=== PATIENT | female | born 1975 | race Caucasian/White ===

== ENCOUNTER 2017-10-27 10:48 | Emergency (ER) | payer OTHER ==
[2017-10-27 10:55] VITALS: BMI 27.4
--- NOTE | 2017-10-27 11:05 | PDOC ---
History of Present Illness - General Chief Complaint: Vaginal Bleeding Stated Complaint: VAGINAL BLEEDING Time Seen by Provider: 10/27/17 10:59 History Source: Patient - History of Present Illness Initial Comments: 10/27/17 11:39 41 y.o. female with no PMH who presents to the ED today c/o intermittent vaginal bleeding since 10/13. Patient states her LMP was 09/30/17 and then after an intense gym workout she noted some blood in her urine. Patient states she only noticed the one episode until a few days later when she had some spotting in her underwear. Patient has since intermittently noted bright red blood in her urine. Patient notes some associated lower abdominal cramping but no dysuria, no fevers/chills, no constipation/diarrhea. Patient further denies shortness of breath, lightheadedness, palpitations. Patient notes her last BM was this morning and was normal. Patient denies any recent or remote h/o STI's and notes she is in a sexually monagamous relationship with her . Patient denies chest pain, nausea/vomiting, recent travel, sick contacts. NKDA Surgical: C/S (1999) Social: (-) nicotine, (-) alcohol, (-) recreational drugs Past History - Past Medical History Allergies/Adverse Reactions: Allergies Allergy/AdvReac Type Severity Reaction Status Date / Time No Known Allergies Allergy Verified 10/27/17 10:55 Home Medications: Ambulatory Orders NK [No Known Home Medication] 10/27/17 COPD: No Other medical history: IRREGULAR MENSES - Suicide/Smoking/Psychosocial Hx Smoking History: Never smoked Hx Alcohol Use: Yes Drug/Substance Use Hx: No Review of Systems - Review of Systems Constitutional: No: Chills, Fever HEENTM: No: Eye Pain, Double Vision, Throat Pain Respiratory: No: Cough, Shortness of Breath, Stridor, Wheezing Cardiac (ROS): No: Chest Pain, Edema, Lightheadedness, Palpitations, Syncope ABD/GI: No: Constipated, Diarrhea, Nausea, Rectal Bleeding, Vomiting : Yes: Hematuria. No: Burning, Dysuria Neurological: No: Headache, Numbness, Paresthesia, Tingling *Physical Exam - Vital Signs Last Vital Signs Temp Pulse Resp BP Pulse Ox 97.7 F 57 L 18 116/69 98 10/27/17 10:51 10/27/17 10:51 10/27/17 10:51 10/27/17 10:51 10/27/17 10:51 - Physical Exam General Appearance: Yes: Nourished, Appropriately Dressed HEENT: positive: EOMI. negative: Pale Conjunctivae, Scleral Icterus (R), Scleral Icterus (L) Neck: positive: Trachea midline, Supple Respiratory/Chest: positive: Lungs Clear Cardiovascular: positive: S1, S2. negative: Edema, JVD, Murmur Female Pelvic Exam: positive: normal external exam, cervical os closed, vaginal bleeding. negative: CMT, discharge, lesions, adnexal tenderness Gastrointestinal/Abdominal: positive: Normal Bowel Sounds, Soft. negative: Distended, Guarding, Tenderness, Hernia, Mass Musculoskeletal: negative: CVA Tenderness (R), CVA Tenderness (L) Extremity: positive: Normal Capillary Refill, Normal Inspection Integumentary: positive: Normal Color, Dry, Warm Neurologic: positive: Fully Oriented, Alert ED Treatment Course - LABORATORY CBC & Chemistry Diagram: 10/27/17 11:30 Medical Decision Making - Medical Decision Making 10/28/17 07:16 41 y.o. female with no PMH presents w/intermittent hematuria and vaginal bleed. Urine negative. CBC shows no anemia. UA shows 1+ blood. Patient is hemodynamically stable, with no CMT tenderness, normal adenxa on pelvic exam. Will discharge home with return precautions and strict instruction to see cured meat packing supervisor on Sunday 10/29. *DC/Admit/Observation/Transfer Diagnosis at time of Disposition: Vaginal bleeding - Discharge Dispostion Disposition: HOME Condition at time of disposition: Good Admit: No - Referrals Referrals: Scarlett Huber MD [Staff Physician] - - Patient Instructions Printed Discharge Instructions: DI for Vaginal Bleeding Additional Instructions: Please make a follow-up appointment with your sulfuric acid plant operator for Sunday. If you cannot see your sulfuric acid plant operator, a referral has been provided for a local cured meat packing supervisor. Please return to the Emergency Department for any new/worsening/concerning symptoms. - Post Discharge Activity
[2017-10-27 11:51] LABS: BASO % 0.9 % (0-2.0); EOS % 4.7 % (0-4.5); HEMATOCRIT 40.4 % (32.4-45.2); HEMOGLOBIN 13.8 GM/dL (10.7-15.3); LYMPH % 25.7 % (8-40); MCH 31.4 pg (25.7-33.7); MCHC 34.1 g/dl (32.0-36.0); MEAN CELL VOLUME 92.2 fl (80-96); MEAN PLT VOLUME 8.6 fl (7.5-11.1); NEUT % 61.7 % (42.8-82.8); PLATELET COUNT 220 K/MM3 (134-434); RBC 4.38 M/mm3 (3.60-5.2); RDW 12.9 % (11.6-15.6); WHITE BLOOD COUNT 5.6 K/mm3 (4.0-10.0)
[2017-10-27 12:22] LABS: HCG,QUALITATIVE URINE NEGATIVE
[2017-10-27 12:26] LABS: URINE APPEARANCE CLEAR; URINE BILIRUBIN NEGATIVE (NEGATIVE); URINE BLOOD 1+ (NEGATIVE); URINE COLOR STRAW; URINE GLUCOSE (UA) NEGATIVE (NEGATIVE); URINE KETONE NEGATIVE (NEGATIVE); URINE LEUK ESTERASE NEGATIVE (NEGATIVE); URINE NITRITE NEGATIVE (NEGATIVE); URINE PROTEIN NEGATIVE (NEGATIVE); URINE UROBILINOGEN NEGATIVE mg/dL (0.2-1.0)
[2017-10-27 12:33] LABS: EPI CELLS RARE /HPF (FEW)
[2017-10-27 13:16] VITALS: BP 123/77; PULSE 62; TEMP 98.2
== END 2017-10-27 13:16 | disposition home or self-care (01) ==
LOC: JER 10:48
DX: N93.9 Abnormal uterine and vaginal bleeding, unspecified (principal)
CPT/HCPCS: 36415; 81003; 81015; 84703; 85025; 99283-25

== ENCOUNTER 2022-04-16 22:44 | Emergency (ER) | payer OTHER ==
[2022-04-16 23:05] VITALS: BP 128/80; PULSE 62; RESP 20; TEMP 97.9; BMI 31.8
[2022-04-17] MEDS ORDERED: MAG HYDROX/AL HYDROX/SIMETH 30 ML UNIT-DOSE CUP PO ONE (00:19)
[2022-04-17] MEDS ORDERED: FAMOTIDINE 20 MG/50 ML IVPB 20 MG/50 ML MG IVPB ONE ×2 (00:19→00:29)
[2022-04-17] MEDS ORDERED: LACTATED RINGERS SOLUTION 1000 ML INFUS.BAG IV ONE (00:19)
[2022-04-17] MEDS ORDERED: SODIUM CHLORIDE 0.9% 500 ML INFUS.BAG IV ONE (00:19)
[2022-04-17] MEDS ORDERED: MAG HYDROX/AL HYDROX/SIMETH 30 ML UNIT-DOSE CUP ONE (00:29)
[2022-04-17 00:45] LABS: PH,URINE 7.5 (5.0-8.0); URINE APPEARANCE CLEAR; URINE BILIRUBIN NEGATIVE (NEGATIVE); URINE COLOR YELLOW; URINE GLUCOSE (UA) NEGATIVE (NEGATIVE); URINE KETONE 2+ (NEGATIVE); URINE LEUK ESTERASE NEGATIVE (NEGATIVE); URINE NITRITE NEGATIVE (NEGATIVE); URINE PROTEIN NEGATIVE (NEGATIVE); URINE UROBILINOGEN 0.2 mg/dL (0.2-1.0)
[2022-04-17 00:46] LABS: HCG,QUALITATIVE URINE NEGATIVE
[2022-04-17 00:50] LABS: BASO % 0.5 % (0-2.0); HEMOGLOBIN 13.1 GM/dL (10.7-15.3); LYMPH % 7.1 % (8-40); MCHC 33.5 g/dl (32.0-36.0); MEAN CELL VOLUME 89.3 fl (80-96); MEAN PLT VOLUME 7.9 fl (7.5-11.1); NEUT % 83.4 % (42.8-82.8); PLATELET COUNT 273 10^3/uL (134-434); RBC 4.37 M/mm3 (3.60-5.2); RDW 12.5 % (11.6-15.6); WHITE BLOOD COUNT 15.6 K/mm3 (4.0-10.0)
[2022-04-17 01:10] LABS: CALCIUM 8.5 mg/dL (8.5-10.1)
[2022-04-17 01:11] LABS: ALBUMIN 3.6 g/dl (3.4-5.0); BLOOD UREA NITROGEN 17.1 mg/dL (7-18)
[2022-04-17 01:14] LABS: CREATININE 0.7 mg/dL (0.55-1.3)
[2022-04-17 01:15] LABS: TOT PROT 6.9 g/dl (6.4-8.2)
== END 2022-04-17 05:43 | disposition home or self-care (01) ==
LOC: JER 22:44
PROC: 3E033GC Introduction of Other Therapeutic Substance into Peripheral Vein, Percutaneous Approach (ICD-10-PCS; principal; 2022-04-16)
DX: R10.33 Periumbilical pain (principal)
CPT/HCPCS: 36415; 74177-TC; 76705-TC; 76830-TC; 80053; 81003; 83690; 84703; 85025; 87086; 87186; 93005; 93010; 96365; 99285-25; Q9967

== ENCOUNTER 2023-10-06 14:16 | Emergency (ER) | payer OTHER ==
[2023-10-06 14:29] VITALS: BMI 33.3
[2023-10-06] MEDS ORDERED: ACETAMINOPHEN 325 MG TABLET (FP) ONE (15:05)
[2023-10-06 15:18] LABS: BASO % 0.7 % (0-2.0); EOS % 5.5 % (0-4.5); HEMATOCRIT 38.3 % (32.4-45.2); HEMOGLOBIN 13.2 GM/dL (10.7-15.3); LYMPH % 29.3 % (8-40); MCH 31.1 pg (25.7-33.7); MCHC 34.5 g/dl (32.0-36.0); MEAN CELL VOLUME 90.1 fl (80-96); MEAN PLT VOLUME 7.3 fl (7.5-11.1); NEUT % 58.5 % (42.8-82.8); PLATELET COUNT 297 10^3/uL (134-434); RBC 4.25 M/mm3 (3.60-5.2); RDW 12.4 % (11.6-15.6); WHITE BLOOD COUNT 5.8 K/mm3 (4.0-10.0)
[2023-10-06] MEDS: ACETAMINOPHEN 325 MG TABLET (FP) PO ONE (15:18)
[2023-10-06 15:51] LABS: POTASSIUM 4.2 mmol/L (3.5-5.1)
[2023-10-06 15:53] LABS: ALBUMIN 3.4 g/dl (3.4-5.0); CALCIUM 9.4 mg/dL (8.5-10.1)
[2023-10-06 15:54] LABS: BLOOD UREA NITROGEN 17.2 mg/dL (7-18)
[2023-10-06 15:56] LABS: CREATININE 0.8 mg/dL (0.55-1.3)
[2023-10-06 15:58] LABS: BILIRUBIN,TOTAL 0.8 mg/dL (0.2-1); TOT PROT 6.8 g/dl (6.4-8.2)
[2023-10-06 18:18] VITALS: BP 111/56; PULSE 63; RESP 20; TEMP 98.2
== END 2023-10-06 18:23 | disposition home or self-care (01) ==
LOC: JER 14:16
DX: R07.89 Other chest pain (principal); Z20.822 Contact with and (suspected) exposure to COVID-19
CPT/HCPCS: 0241U-QW; 36415; 71046-TC-FY; 80053; 84484; 85025; 85379; 93005; 93010; 99285-25